=== PATIENT | female | born 1960 | race Caucasian/White ===

== ENCOUNTER 2016-05-23 20:17 | Emergency (ER) | payer OTHER ==
[2016-05-23] MEDS ORDERED: DIPH/PERTUSS(ACELL)/TETANUS VAC/PF 0.5 ML SYR (>=10YO) IM ONE (20:38)
--- NOTE | 2016-05-23 20:38 | ER Document Report ---
ED Medical Screen (RME) - General Stated Complaint: FINGER LACERATION Notes: Laceration to right third digit from a can. Patient does not recall her last tetanus shot I greeted and performed a rapid initial assessment of this patient. Comprehensive ED assessment and evaluation of the patient, analysis of test results and completion of the medical decision making process will be conducted by additional ED providers. TRAVEL OUTSIDE OF THE [place] IN LAST 30 DAYS: No Past Medical History - Past Medical History Cardiac Medical History: Reports: Hx Hypercholesterolemia Musculoskeltal Medical History: Reports Hx Arthritis Past Surgical History: Reports: Hx Abdominal Surgery, Hx Section, Hx Orthopedic Surgery
[2016-05-23] MEDS ORDERED: LIDOCAINE 1% INJ-PF (10 MG/ML) 30 ML SDV INJ ONE (21:39)
--- NOTE | 2016-05-23 21:40 | ER Document Report ---
ED Wound - General Chief Complaint: Laceration Stated Complaint: FINGER LACERATION Time seen by provider: 21:35 Notes: Patient is a 55-year-old female that comes emergency department for chief complaint of accidental laceration to her right third digit on a metal can just prior to arrival. Patient denies any other injuries. Tetanus is not up-to- date within 5 years. TRAVEL OUTSIDE OF THE [place] IN LAST 30 DAYS: No - Related Data Allergies/Adverse Reactions: acetaminophen [From Tylox] Allergy (Verified 05/23/16 20:43) morphine Allergy (Verified 05/23/16 20:43) oxycodone [From Tylox] Allergy (Verified 05/23/16 20:43) ibuprofen [From Motrin] Adverse Reaction (Verified 05/23/16 20:43) Past Medical History - General Information source: Patient - Social History Smoking Status: Never Smoker Frequency of alcohol use: None Drug Abuse: None Lives with: Family Family History: Malignancy, Other - Breast cancer in the mother, father of massive RI at 64 Patient has suicidal ideation: No Patient has homicidal ideation: No - Past Medical History Cardiac Medical History: Reports: Hx Hypercholesterolemia Renal/ Medical History: Denies: Hx Peritoneal Dialysis Musculoskeltal Medical History: Reports Hx Arthritis Past Surgical History: Reports: Hx Abdominal Surgery, Hx Section, Hx Orthopedic Surgery - Immunizations Immunizations up to date: No Hx Diphtheria, Pertussis, Tetanus Vaccination: Yes Review of Systems - Review of Systems Constitutional: No symptoms reported EENT: No symptoms reported Cardiovascular: No symptoms reported Respiratory: No symptoms reported Gastrointestinal: No symptoms reported Genitourinary: No symptoms reported Female Genitourinary: No symptoms reported Musculoskeletal: See HPI Skin: See HPI Hematologic/Lymphatic: No symptoms reported Neurological/Psychological: No symptoms reported Physical Exam - Vital signs Vitals: Temp Pulse Resp BP Pulse Ox 98.2 F 102 H 16 154/95 H 98 05/23/16 20:30 05/23/16 20:30 05/23/16 20:30 05/23/16 20:30 05/23/16 20:30 Interpretation: Normal - General General appearance: Appears well, Alert In distress: None - HEENT Head: Normocephalic, Atraumatic Eyes: Normal Conjunctiva: Normal Extraocular movements intact: Yes Eyelashes: Normal Pupils: PERRL Nasal: Normal Mouth/Lips: Normal Mucous membranes: Normal Pharynx: Normal Neck: Normal - Respiratory Respiratory status: No respiratory distress Chest status: Nontender Breath sounds: Normal Chest palpation: Normal - Cardiovascular Rhythm: Regular Heart sounds: Normal auscultation Murmur: No - Abdominal Inspection: Normal Distension: No distension Bowel sounds: Normal Tenderness: Nontender Organomegaly: No organomegaly - Back Back: Normal, Nontender. No: Tender - Extremities General upper extremity: Other - 0.5 centimeter superficial linear laceration to the finger tip over the dorsal aspect of the third digit on the right hand. Normal capillary refill and sensation, normal exam otherwise General lower extremity: Normal inspection, Nontender, Normal ROM, Normal strength - Neurological Neuro grossly intact: Yes Cognition: Normal Orientation: AAOx4 Martin Coma Scale Eye Opening: Spontaneous Martin Coma Scale Verbal: Oriented Martin Coma Scale Motor: Obeys Commands Martin Coma Scale Total: 15 Speech: Normal Motor strength normal: LUE, RUE, LLE, RLE Sensory: Normal - Psychological Associated symptoms: Normal affect, Normal mood - Skin Skin Temperature: Warm Skin Moisture: Dry Skin Color: Normal Course - Re-evaluation Re-evalutation: At the end of the suturing procedure patient became very pale, nauseated, appeared to almost have a syncopal episode, patient was immediately placed on the bed, placed in Trendelenburg, given Zofran, shortly after the symptoms resolved. Discussed wound care, suture removal, return precautions. Patient states understanding and agreement. - Vital Signs Vital signs: Temp Pulse Resp BP Pulse Ox 98.2 F 83 20 143/94 H 95 05/23/16 20:30 05/23/16 22:54 05/23/16 22:54 05/23/16 22:54 05/23/16 22:54 Procedures - Laceration/Wound Repair right third digit finger pad Wound length (cm): 0.5 Wound's Depth, Shape: Superficial, Linear Anesthetic type: 1% Lidocaine Volume Anesthetic (mLs): 1 Wound explored: Clean, No foreign body removed Irrigated w/ Saline (mLs): 40 Wound Repaired With: Sutures Suture Size/Type: 5:0, Nylon Number of Sutures: 2 Layer Closure?: No Post-procedure wound care: Sterile dressing applied Post-procedure NV exam normal: Yes Complications: No Discharge - Discharge Clinical Impression: Finger laceration Qualifiers: Encounter type: initial encounter Qualified Code(s): S61.219A - Laceration without foreign body of unspecified finger without damage to nail, initial encounter Condition: Stable Disposition: HOME, SELF-CARE Instructions: Tetanus Immunization Given ([facility]) Additional Instructions: Sutures need to come out in 5-7 days. Keep wound clean, clean gently with soap and water, avoid soaking, apply thin film topical antibiotic. Return immediately for any concerning symptoms suggesting infection including redness, swelling, pus drainage, fever, etc. Forms: Elevated Blood Pressure Referrals: JESSICA WILLIS [facility] [Primary Care Provider] - Follow up as needed
[2016-05-23] MEDS ORDERED: ONDANSETRON 4 MG TAB.RAPDIS ONE (22:49)
[2016-05-23 23:00] VITALS: BP 143/94
[2016-05-23] MEDS ORDERED: ONDANSETRON 4 MG TAB.RAPDIS PO ONE (23:17)
== END 2016-05-23 22:54 | disposition home or self-care (01) ==
LOC: ER 20:17
PROC: 0HQFXZZ Repair Right Hand Skin, External Approach (ICD-10-PCS; principal; 2016-05-23)
DX: S61.212A Laceration without foreign body of right middle finger without damage to nail, initial encounter (principal); W26.8XXA Contact with other sharp object(s), not elsewhere classified, initial encounter; E78.00 Pure hypercholesterolemia, unspecified; Z88.6 Allergy status to analgesic agent; Z23 Encounter for immunization
CPT/HCPCS: 99282; 90471; 90715; 12001; S0119; J3490

== ENCOUNTER → 2019-04-24 | Outpatient (CLI) | payer OTHER ==
--- NOTE | 2019-04-24 14:16 | EKG REPORT ---
SEVERITY:- ABNORMAL ECG - SINUS RHYTHM PROBABLE LEFT ATRIAL ABNORMALITY LAD, CONSIDER LEFT ANTERIOR FASCICULAR BLOCK LOW VOLTAGE IN FRONTAL LEADS : Confirmed by: Dona Okeefe 24-Apr-2019 14:14:42
== END ==
LOC: OD 12:31
PROVIDERS: ATTEND Orthopaedic Surgery
DX: Z01.810 Encounter for preprocedural cardiovascular examination (principal)
CPT/HCPCS: 93005; 93010